=== PATIENT | male | born 1995 | race Two or more races ===

== ENCOUNTER 2017-07-31 20:21 | Emergency (ER) | payer SELFPAY ==
[~2017-07-31] VITALS: Ht 180.3 cm; Wt 120.2 kg
[~2017-07-31 20:21] MED LIST: NKM; NORCO 5-325 TA1 EACH ORAL; ZANTAC150 MG ORAL; ZOFRAN4 MG ORAL
[2017-07-31 20:35] VITALS: BP 157/92
[2017-07-31 21:32] LABS: BASOPHILS % (AUTO) 1.3 % (0.0-2.0); EOSINOPHILS % (AUTO) 1.5 % (0.0-3.0); LYMPHOCYTES % (AUTO) 41.4 % (20.0-45.0); MEAN CORPUSCULAR HEMOGLOBIN 29.9 PG (27.0-31.0); MEAN CORPUSCULAR HGB CONC 32.9 G/DL (32.0-36.0); MEAN CORPUSCULAR VOLUME 91 FL (80-99); MEAN PLATELET VOLUME 6.8 FL (6.5-10.1); MONOCYTES % (AUTO) 6.4 % (1.0-10.0); NEUTROPHILS % (AUTO) 49.5 % (45.0-75.0); PLATELET COUNT 306 K/UL (150-450); RED BLOOD COUNT 5.19 M/UL (4.70-6.10); WHITE BLOOD COUNT 7.9 K/UL (4.8-10.8)
[2017-07-31 21:36] LABS: ANION GAP 12 mmol/L (5-15); CALCIUM 9.6 MG/DL (8.5-10.1); CARBON DIOXIDE 27 MMOL/L (21-32); CHLORIDE 102 MMOL/L (98-107); GLOMERULAR FILTRATION RATE > 60 mL/min (>60); POTASSIUM 3.7 MMOL/L (3.5-5.1); SODIUM 141 MMOL/L (136-145)
[2017-07-31 22:35] VITALS: BP 149/77
[2017-07-31] MEDS ORDERED: NORCO 5-325 TA1 EACH ORAL (22:54)
[2017-07-31] MEDS ORDERED: IBUPROFEN600 MG ORAL (22:54)
[2017-07-31 23:04] VITALS: BP 149/77
--- NOTE | 2017-07-31 23:23 | Emergency Room Report ---
History of Present Illness General Chief Complaint: Back Pain-No Injury Source: Patient Present Illness HPI Patient presents emergency department today complaining of right upper back pain. Patient states that he strained his right upper back while he was out camping. Patient states that he has had pain there ever since it's worse with movement worse with deep inspiration. He denies any cough runny nose sore throat he has some mild chest discomfort. No other complaints are noted. Denies any leg pain leg swelling. No history of DVT or pulmonary embolism.No other modifying factors. No other associated signs and symptoms. No other complaints were noted. Allergies: Coded Allergies: No Known Allergies (Unverified , 04/27/13) Patient History Past Medical History: none Past Surgical History: none Pertinent Family History: none Social History: Denies: smoking, alcohol use, drug use Reviewed Nursing Documentation: PMH: Agreed, PSxH: Agreed Nursing Documentation-PM Past Medical History: No Stated History Hx Gastrointestinal Problems: Yes - gastritis Review of Systems All Other Systems: negative except mentioned in HPI Physical Exam Vital Signs Date Time Temp Pulse Resp B/P (MAP) Pulse Ox O2 Delivery O2 Flow Rate FiO2 07/31/17 20:29 98.2 69 14 157/92 100 Room Air Sp02 EP Interpretation: reviewed, normal General Appearance: normal inspection, well appearing, no apparent distress, alert Head: atraumatic Eyes: bilateral eye normal inspection ENT: normal ENT inspection, hearing grossly normal, normal voice Neck: normal inspection, full range of motion, supple, no bony tend Respiratory: normal inspection, lungs clear, normal breath sounds, no respiratory distress, no retraction, no wheezing Cardiovascular #1: regular rate, rhythm, no edema Gastrointestinal: normal inspection, normal bowel sounds, non tender, soft, no guarding, no hernia Genitourinary: no CVA tenderness Musculoskeletal: normal inspection, back normal, normal range of motion Neurologic: normal inspection, alert, responsive, speech normal Psychiatric: normal inspection, judgement/insight normal, mood/affect normal Skin: normal inspection, normal color, no rash Medical Decision Making Diagnostic Impression: Primary Impression: Back pain ER Course Patient presents emergency department today complaining lower back pain. Differential considerations include back strain, pneumothorax, acute coronary syndrome, pulmonary embolism. Given the severity of the patient's presentation I felt this is a highly complex patient. This patient required extensive workup. Patient's laboratory workup was negative. X-rays negative. EKG was normal. Therefore the patient be discharged home.Patient is advised to follow up with primary doctor in 2-3 days and return the emergency room for any worsening symptoms and as needed. Labs Test 07/31/17 20:58 White Blood Count 7.9 K/UL (4.8-10.8) Red Blood Count 5.19 M/UL (4.70-6.10) Hemoglobin 15.5 G/DL (14.2-18.0) Hematocrit 47.2 % (42.0-52.0) Mean Corpuscular Volume 91 FL (80-99) Mean Corpuscular Hemoglobin 29.9 PG (27.0-31.0) Mean Corpuscular Hemoglobin Concent 32.9 G/DL (32.0-36.0) Red Cell Distribution Width 12.0 % (11.6-14.8) Platelet Count 306 K/UL (150-450) Mean Platelet Volume 6.8 FL (6.5-10.1) Neutrophils (%) (Auto) 49.5 % (45.0-75.0) Lymphocytes (%) (Auto) 41.4 % (20.0-45.0) Monocytes (%) (Auto) 6.4 % (1.0-10.0) Eosinophils (%) (Auto) 1.5 % (0.0-3.0) Basophils (%) (Auto) 1.3 % (0.0-2.0) D-Dimer 0.19 mg/L FEU (0.00-0.49) Sodium Level 141 MMOL/L (136-145) Potassium Level 3.7 MMOL/L (3.5-5.1) Chloride Level 102 MMOL/L (98-107) Carbon Dioxide Level 27 MMOL/L (21-32) Anion Gap 12 mmol/L (5-15) Blood Urea Nitrogen 13 mg/dL (7-18) Creatinine 1.0 MG/DL (0.55-1.30) Estimat Glomerular Filtration Rate > 60 mL/min (>60) Glucose Level 116 MG/DL (74-106) Calcium Level 9.6 MG/DL (8.5-10.1) EKG Diagnostic Results Rate: normal Rhythm: NSR ST Segments: no acute changes Rhythm Strip Diag. Results EP Interpretation: yes Rate: 61 Rhythm: NSR, no PVC's, no ectopy Chest X-Ray Diagnostic Results Chest X-Ray Diagnostic Results : Chest X-Ray Ordered: Yes # of Views/Limited/Complete: 2 View Indication: Shortness of Breath EP Interpretation: Yes Interpretation: no consolidation, no effusion, no pneumothorax, no acute cardiopulmonary disease Impression: No acute disease Electronically Signed by: Electronically signed by Saul Young MD Last Vital Signs Date Time Temp Pulse Resp B/P (MAP) Pulse Ox O2 Delivery O2 Flow Rate FiO2 07/31/17 23:04 98.2 72 14 149/77 100 Room Air Status: improved Disposition: HOME, SELF-CARE Condition: Stable Scripts Ibuprofen* (MOTRIN*) 600 Mg Tablet 600 MG ORAL Q8H Y for For Pain, #20 TAB 0 Refills Prov: SAUL YOUNG M.D. 07/31/17 Hydrocodone Bit/Acetaminophen 5-325* (NORCO 5-325*) 1 Each Tablet 1 TAB ORAL Q6H Y for For Pain, #20 TAB 0 Refills Prov: SAUL YOUNG M.D. 07/31/17 Patient Instructions: Back Pain, Adult SAUL YOUNG M.D. Jul 31, 2017 23:23
--- NOTE | 2017-08-01 10:07 | Diagnostic Imaging Report ---
Indication: PAIN Technique: 2 views of the chest Comparison: none Findings: Lungs and pleural spaces are clear. Heart size is normal. Impression: No acute process This agrees with the preliminary interpretation provided by the emergency room physician
--- NOTE | 2017-08-02 14:46 | Cardiology Report ---
APPROVED REPORT EKG Measurement Heart [id number] Normal sinus rhythm Normal ECG
== END 2017-07-31 23:04 | disposition home or self-care (01) ==
LOC: EMR 22:03
DX: M54.5 Low back pain (principal); R07.89 Other chest pain
CPT/HCPCS: 36415; 71020; 80048; 85025; 85379; 93005; 99284

== ENCOUNTER 2019-06-11 20:10 | Emergency (ER) | payer MEDICAID ==
[~2019-06-11] VITALS: Ht 180.3 cm; Wt 117.9 kg
[~2019-06-11 20:10] MED LIST changes: +BENAZEPRIL HCL20 MG ORAL; +COLACE100 MG ORAL; +IBUPROFEN600 MG ORAL; +MECLIZINE HCL25 MG ORAL; +ONDANSETRON ODT4 MG ORAL; +PRILOSEC10 M1 ORAL; +RANITIDINE HCL150 MG ORAL; +ZOFRAN ODT4 MG ORAL
[2019-06-11 20:30] VITALS: BP 139/95
--- NOTE | 2019-06-11 20:30 | NUR ---
ED Nurse Note: pt walked in c/o abd pain and diarrhea since friday but worsen today, pt reports he ate something but unable to recall, pt vss, ambulate w/ steady gait, resp even and unlabored on RA, no active n/v at this time, will cont monitor.
[2019-06-11] MEDS ORDERED: Mylanta II UD 30ml ORAL ONE (20:45)
[2019-06-11] MEDS ORDERED: Dicyclomine HCl 10mg/5ml oral soln ORAL ONE (20:45)
[2019-06-11] MEDS ORDERED: Lidocaine 2% Visc 15ml soln ORAL ONE (20:45)
[2019-06-11] MEDS ORDERED: ANTI-DIARRHEAL2 MG PO (20:46)
[2019-06-11] MEDS ORDERED: FAMOTIDINE20 MG ORAL (20:46)
[2019-06-11] MEDS ORDERED: ONDANSETRON ODT4 MG BC (20:46)
--- NOTE | 2019-06-11 20:50 | Emergency Room Report ---
History of Present Illness General Chief Complaint: Nausea Source: Patient Present Illness HPI Disclaimer: Please note that this report is being documented using [employer] technology. This can lead to erroneous entry secondary to incorrect interpretation by the dictating instrument. HPI: 24-year-old male with history of ulcer presents for evaluation of diarrhea and nausea. Symptoms have been present for approximately 5 days. He notes persistently loose stools without hematochezia or melena. He notes mild abdominal cramping but not significant. He is able to eat and drink at his baseline. He is complaining of intermittent nausea. Denies fevers, chills, chest pain, shortness of breath, cough or URI symptoms. Denies dysuria or hematuria. He presents to the emergency department today because his symptoms have persisted for greater than 5 days and is constant diarrhea is interfering with his work. He does not have a PMD. Has not taken any medication prior to arrival. Currently, he states his nausea is almost completely resolved and is only complaining of very mild generalized abdominal cramping. States he was treated for a ulcer in the past but this is now resolved and he is no longer taking antacids aside from Mylanta whenever needed PMH: Ulcer PSH: Denies Allergies: Denies Social Hx: CBD, vapes tobacco products Allergies: Coded Allergies: No Known Allergies (Unverified , 04/27/13) Nursing Documentation-PMH Hx Gastrointestinal Problems: Yes - gastritis Review of Systems All Other Systems: negative except mentioned in HPI Physical Exam Vital Signs Date Time Temp Pulse Resp B/P (MAP) Pulse Ox O2 Delivery O2 Flow Rate FiO2 06/11/19 20:20 98.6 77 16 139/95 (110) 98 Room Air General: Awake and alert, no acute distress, well-appearing HEENT: NC/AT. EOMI. moist mucous membranes Neck: Supple, trachea midline Chest Wall: No tenderness, no deformity Cardiovascular: RRR. S1 and S2 normal. No murmur appreciated. Capillary refill less than 2 seconds Resp: Normal work of breathing. No cough, wheezing or crackles appreciated Abdomen: Abdomen is soft, nondistended. Nontender, no masses appreciated. Skin: Intact. No abrasions, laceration or rash over the exposed skin MSK: Normal tone and bulk. Moving all extremities. No obvious deformity. Neuro: Awake and alert. Mentating appropriately. Medical Decision Making Diagnostic Impression: Primary Impression: Diarrhea Additional Impression: Nausea ER Course This 24-year-old male presenting for evaluation of 1 week diarrheal illness with intermittent nausea. Patient appears well-hydrated, no acute distress, abdomen is soft and nontender. He is eating and drinking at his baseline. Overall, he is very well-appearing and nontoxic. Likely, this is a viral syndrome which should resolve in the next week. He will be started on loperamide, daily famotidine and Zofran as needed. I do not believe he requires emergent imaging or lab work at this time. He was also given the list of several clinics in the area for which he can establish himself as a new patient in follow-up within the next week for reevaluation. We did discuss reasons to return to the emergency department. He understands and agrees with the treatment plan was discharged home Last Vital Signs Date Time Temp Pulse Resp B/P (MAP) Pulse Ox O2 Delivery O2 Flow Rate FiO2 06/11/19 20:20 98.6 77 16 139/95 (110) 98 Room Air Disposition: HOME, SELF-CARE Condition: Stable Scripts Ondansetron Odt* (ZOFRAN ODT*) 4 Mg Tab.rapdis 4 MG BC EVERY 6 HOURS PRN for Nausea & Vomiting, #20 TAB 0 Refills Prov: Obed Jonas MD 06/11/19 Famotidine (FAMOTIDINE) 20 Mg Tablet 20 MG ORAL DAILY, #30 TAB 0 Refills Prov: Obed Jonas MD 06/11/19 Loperamide Hcl (ANTI-DIARRHEAL) 2 Mg Capsule 2 MG PO QID PRN for Diarrhea for 10 Days, #30 CAP Prov: Obed Jonas MD 06/11/19 Referrals: [facility] Patient Instructions: Nausea, Adult, Diarrhea, Adult Additional Instructions: Your evaluated for diarrhea and nausea in the emergency department today. Likely, this is a viral syndrome that should resolve in the next week. We will start you on Imodium to treat your diarrhea, Pepcid daily for heartburn and nausea medication to use as needed. He will also be referred to several clinics in the area to establish herself as a new patient. Please follow-up with them within the next week and return to the emergency department any new or worsening symptoms. Obed Jonas MD Jun 11, 2019 20:50
--- NOTE | 2019-06-11 20:55 | NUR ---
ED Nurse Note: pt cleared to be d/c per ERMD, pt discharge and aftercare instruction provided w/ prescription, pt education done via discussion and handout, pt advised to follow up with pcp or return to ed if changes in condition, vss, ambulatory w/ steady gait, left w/ all belongings.
[2019-06-11 20:56] VITALS: BP 121/86
== END 2019-06-11 20:56 | disposition home or self-care (01) ==
LOC: EMR 20:35
DX: R19.7 Diarrhea, unspecified (principal); R11.0 Nausea; Z87.11 Personal history of peptic ulcer disease; Z72.0 Tobacco use
CPT/HCPCS: 96374; 96375; Z7502; 99284; J2405

== ENCOUNTER 2019-06-13 18:30 | Emergency (ER) | payer MEDICAID ==
[~2019-06-13] VITALS: Ht 180.3 cm; Wt 117.9 kg
[~2019-06-13 18:30] MED LIST changes: +ANTI-DIARRHEAL2 MG PO; +FAMOTIDINE20 MG ORAL; +ONDANSETRON ODT4 MG BC
--- NOTE | 2019-06-13 18:40 | NUR ---
ED Nurse Note: PT WALKED IN TO ER TODAY FROM HOME. AOX4. PT C/O NONRADIATING, STERNAL CHEST PAIN, 7/10 X LAST NIGHT AROUND 2300. PT ALSO C/O ANTERIOR HEADACHE AND DIZZINESS X LAST NIGHT AT THE SAME TIME. PT DENIES NAUSEA OR VOMITING. GAIT STEADY IN ER. AT BEDSIDE, EKG IS NORMAL SINUS RHYTHM WITH HR 83.
[2019-06-13 18:43] VITALS: BP 142/88
[2019-06-13 19:05] VITALS: BP 122/82
--- NOTE | 2019-06-13 19:05 | NUR ---
HAND-OFF: REPORT GIVEN TO CLINTON GONZÁLES.
[2019-06-13 19:11] LABS: BASOPHILS % (AUTO) 0.4 % (0.0-2.0); EOSINOPHILS % (AUTO) 0.1 % (0.0-3.0); HEMATOCRIT 47.1 % (42.0-52.0); HEMOGLOBIN 16.1 G/DL (14.2-18.0); LYMPHOCYTES % (AUTO) 24.6 % (20.0-45.0); MEAN CORPUSCULAR VOLUME 88 FL (80-99); MONOCYTES % (AUTO) 6.2 % (1.0-10.0); NEUTROPHILS % (AUTO) 68.7 % (45.0-75.0); PLATELET COUNT 266 K/UL (150-450); RED BLOOD COUNT 5.35 M/UL (4.70-6.10); RED CELL DISTRIBUTION WIDTH 10.8 % (11.6-14.8); WHITE BLOOD COUNT 7.5 K/UL (4.8-10.8)
[2019-06-13 19:19] LABS: ANION GAP 10 mmol/L (5-15); BLOOD UREA NITROGEN 8 mg/dL (7-18); CALCIUM 9.5 MG/DL (8.5-10.1); CARBON DIOXIDE 26 MMOL/L (21-32); CHLORIDE 104 MMOL/L (98-107); CREATININE 0.9 MG/DL (0.55-1.30); POTASSIUM 3.9 MMOL/L (3.5-5.1); SODIUM 140 MMOL/L (136-145)
--- NOTE | 2019-06-13 19:20 | NUR ---
ED Nurse Note: urine sent to lab
[2019-06-13 19:23] LABS: ALANINE AMINOTRANSFERASE 36 U/L (12-78); ALBUMIN 4.6 G/DL (3.4-5.0); ALBUMIN/GLOBULIN RATIO 1.1 (1.0-2.7); ALKALINE PHOSPHATASE 76 U/L (46-116); ASPARTATE AMINO TRANSFERASE 19 U/L (15-37); BILIRUBIN,TOTAL 0.7 MG/DL (0.2-1.0); CREATINE KINASE 241 U/L (26-308)
[2019-06-13 19:34] LABS: APPEARANCE,URINE CLEAR; BILIRUBIN, URINE NEGATIVE (NEGATIVE); GLUCOSE, URINE (UA) NEGATIVE (NEGATIVE); KETONES,URINE NEGATIVE (NEGATIVE); LEUKOCYTE ESTERASE ,URINE NEGATIVE (NEGATIVE); NITRITE,URINE NEGATIVE (NEGATIVE); PH,URINE 6 (4.5-8.0); PROTEIN,URINE 1+ (NEGATIVE); UROBILINOGEN,URINE NORMAL MG/DL (0.0-1.0)
[2019-06-13 19:36] LABS: COLOR,URINE YELLOW
[2019-06-13] MEDS ORDERED: Ketorolac 30mg Inj IV ONE (19:45)
--- NOTE | 2019-06-13 19:58 | Emergency Room Report ---
History of Present Illness General Chief Complaint: Chest Pain Source: Patient Present Illness HPI 24-year-old male with history of benign positional vertigo currently taking meclizine here complaining of 1 day of chest pain. Patient reports that he was here this past Friday and was diagnosed with stomach flu due to abdominal pain nausea vomiting. However there are no notes of his visit here. Patient reports that he has been having multiple bouts of vomiting which has been resolving today and one bout of nonbloody diarrhea. Denies fever and chills. Reports that he started feeling chest pain with radiation or shortness of breath today and is scared to go to sleep as he is afraid of flying. Patient reports that he uses CBD oil for anxiety. Reports that he has been very anxious lately however denies any suicidal homicidal ideation. Denies illicit drug use or tobacco smoke. Denies ingestion of alcohol recently. Denies recent travel. Reports that he has not yet picked up his prescription for Pepcid. Reports that meclizine helps him with nausea. Has been able to intake oral hydration. Denies urinary symptoms. Denies any recent vertigo. Denies history of cardiac disease. Reports that his chest pain gets better when he leans forward and is worse when laying down. Reports that he usually consumes a lot of acidic and spicy food however has stopped taking them in the past few days. He mentions that he has been doing cramping in the legs as well as arms however denies today. No calf tenderness noted. Patient reports that he is very active and usually hydrates Allergies: Coded Allergies: No Known Allergies (Unverified , 02/17/17) Patient History Past Medical History: see triage record Past Surgical History: unable to obtain Pertinent Family History: none Immunizations: UTD Reviewed Nursing Documentation: PMH: Agreed; PSxH: Agreed Nursing Documentation-PMH Past Medical History: No History, Except For Hx Hypertension: Yes Hx Gastrointestinal Problems: Yes - stomach ULCER Review of Systems All Other Systems: negative except mentioned in HPI Physical Exam Vital Signs Date Time Temp Pulse Resp B/P (MAP) Pulse Ox O2 Delivery O2 Flow Rate FiO2 06/13/19 18:32 99.0 93 20 149/95 (113) 98 Room Air Sp02 EP Interpretation: reviewed, normal General Appearance: no apparent distress, alert, GCS 15, non-toxic Head: normocephalic, atraumatic Eyes: bilateral eye normal inspection, bilateral eye PERRL ENT: hearing grossly normal, normal pharynx, no angioedema, normal voice Neck: full range of motion, supple/symm/no masses Respiratory: chest non-tender, lungs clear, normal breath sounds, no rhonchi, no respiratory distress, no wheezing, speaking full sentences Cardiovascular #1: regular rate, rhythm, no edema, no gallop, no murmur Cardiovascular #2: 2+ dorsalis pedis (R), 2+ dorsalis pedis (L) Gastrointestinal: non tender, soft, no mass, no organomegaly, no peritonitis, no bruit, non-distended, no guarding, no hernia, no pulsatile mass, no rebound Rectal: deferred Genitourinary: normal inspection, no CVA tenderness Musculoskeletal: back normal, gait/station normal, normal range of motion, non- tender, no calf tenderness Neurologic: alert, oriented x3, responsive, motor strength/tone normal, sensory intact, speech normal Psychiatric: judgement/insight normal, memory normal, mood/affect normal, no suicidal/homicidal ideation Skin: no rash Lymphatic: no adenopathy Medical Decision Making PA Attestation Diagnosis and treatment plans were reviewed and discussed with my supervising physician Dr. Jimenez Diagnostic Impression: Primary Impression: Anxiety Additional Impression: GERD (gastroesophageal reflux disease) ER Course 24-year-old male with history of benign positional vertigo currently taking meclizine here complaining of 1 day of chest pain. Patient reports that he was here this past Friday and was diagnosed with stomach flu due to abdominal pain nausea vomiting. However there are no notes of his visit here. Patient reports that he has been having multiple bouts of vomiting which has been resolving today and one bout of nonbloody diarrhea. Denies fever and chills. Reports that he started feeling chest pain with radiation or shortness of breath today and is scared to go to sleep as he is afraid of flying. Patient reports that he uses CBD oil for anxiety. Reports that he has been very anxious lately however denies any suicidal homicidal ideation. Denies illicit drug use or tobacco smoke. Denies ingestion of alcohol recently. Denies recent travel. Reports that he has not yet picked up his prescription for Pepcid. Reports that meclizine helps him with nausea. Has been able to intake oral hydration. Denies urinary symptoms. Denies any recent vertigo. Denies history of cardiac disease. Reports that his chest pain gets better when he leans forward and is worse when laying down. Reports that he usually consumes a lot of acidic and spicy food however has stopped taking them in the past few days. He mentions that he has been doing cramping in the legs as well as arms however denies today. No calf tenderness noted. Patient reports that he is very active and usually hydrates Ddx considered but are not limited to: PR, Angina, COPD, GERD, anxiety Vital signs: are WNL, pt. is afebrile H&PE are most consistent with: anxiety, GERD ORDERS: CBC, CMP, CK, UA, troponin, tox screen, EKG ED INTERVENTIONS: NS bolus, Pepcid, Toradol, Zofran DISCHARGE: At this time pt. is stable for d/c to home. Will provide printed patient care instructions, and any necessary prescriptions. Care plan and follow up instructions have been discussed with the patient prior to discharge. Patient agrees to continue taking meclizine as needed for vertigo and also nausea patient will clam picker the prescription for Pepcid. Advised him to take Tylenol for pain instead of ibuprofen. Patient to follow-up with a psychiatrist. Reduce CBD oil use as it may be the cause of his anxiety as well as excess nausea vomiting. Return to the emergency room with worsening symptoms. Patient is stable to be discharged EKG Diagnostic Results Rate: normal Rhythm: NSR ST Segments: no acute changes Chest X-Ray Diagnostic Results Chest X-Ray Diagnostic Results : Chest X-Ray Ordered: Yes # of Views/Limited/Complete: 1 View Indication: Chest Pain EP Interpretation: Yes TESFAYE Xray: Interpretation reviewed, by supervising MD, and agrees with findings. Interpretation: no consolidation, no effusion, no pneumothorax Impression: No acute disease Electronically Signed by: Coby Echavarria PA-C Last Vital Signs Date Time Temp Pulse Resp B/P (MAP) Pulse Ox O2 Delivery O2 Flow Rate FiO2 06/13/19 19:05 98.8 70 12 122/82 94 Room Air Disposition: HOME, SELF-CARE Condition: Stable Patient Instructions: Generalized Anxiety Disorder, Nonspecific Chest Pain, Heartburn Additional Instructions: Follow-up with your primary care provider worsening symptoms return to the emergency room Coby Sosa Jun 13, 2019 19:58
[2019-06-13 20:08] VITALS: BP 127/82
--- NOTE | 2019-06-13 20:08 | NUR ---
ER DISCHARGE NOTE: Patient is cleared to be discharged per ERMD, pt is aox4, on room air, with stable vital signs. pt was given dc and prescription instructions, pt was able to verbalize understanding, pt id band and iv site removed without complications. pt is able to ambulate with steady gait. pt took all belongings.
--- NOTE | 2019-06-14 10:58 | Diagnostic Imaging Report ---
Indication: Dyspnea Comparison: 11/13/2016 A single view chest radiograph was obtained. Findings: Cardiomediastinal appearance is within normal limits for age. The lungs are clear. Pulmonary vascularity is appropriate. The diaphragmatic contour is smooth and costophrenic angles are sharp. No pleural effusions are identified. The bones are unremarkable. Impression: No acute findings
--- NOTE | 2019-06-14 18:35 | Cardiology Report ---
APPROVED REPORT EKG Measurement Heart [id number] NM [id number] Normal sinus rhythm Normal ECG
== END 2019-06-13 20:08 | disposition home or self-care (01) ==
LOC: MERGE 18:53 → EMR 18:53
DX: F41.9 Anxiety disorder, unspecified (principal); K21.9 Gastro-esophageal reflux disease without esophagitis; I10 Essential (primary) hypertension
CPT/HCPCS: 36415; 71045; 80053; 80307; 80329; 81001; 82550; 84484; 85025; 93005; 96361; 96374; 96375; J1885; J2405; S0028; Z7502; 99284

== ENCOUNTER 2020-08-17 09:06 | Emergency (ER) | payer MEDICAID ==
[~2020-08-17] VITALS: Ht 180.3 cm; Wt 113.4 kg
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
[2020-08-17 09:28] VITALS: BP 133/87
[2020-08-17] MEDS ORDERED: ROBAXIN-750750 MG PO (09:29)
[2020-08-17] MEDS ORDERED: IBUPROFEN600 M1 ORAL (09:29)
[2020-08-17] MEDS ORDERED: LIDODERM700 M1 TOPIC (09:29)
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
--- NOTE | 2020-08-17 09:35 | NUR ---
ED Nurse Note: Pt cleared by health care Provider for discharge. DC instructions/prescription was given and explained to pt and verbalized understanding of teachings. All medical deviecs such as ID band removed. Pt is AAO x4, ambulatory and left with all personal belongings.
[2020-08-17 09:37] VITALS: BP 127/85
== END 2020-08-17 09:56 | disposition home or self-care (01) ==
LOC: EMR 09:25
DX: S39.012A Strain of muscle, fascia and tendon of lower back, initial encounter (principal); V43.52XA Car driver injured in collision with other type car in traffic accident, initial encounter; Y92.411 Interstate highway as the place of occurrence of the external cause
CPT/HCPCS: 99282

== ENCOUNTER 2020-09-18 10:03 | Emergency (ER) | payer MEDICAID ==
[~2020-09-18] VITALS: Ht 180.3 cm; Wt 108.9 kg
[~2020-09-18 10:03] MED LIST changes: +AUGMENTIN 875-1 EAC1 ORAL; +BACITRACIN15 GM TOPIC; +IBUPROFEN600 M1 ORAL; +LIDOCAINE700 M1 TP; +LIDODERM700 M1 TOPIC; +ROBAXIN-750750 MG PO; +ROBAXIN500 MG PO; +TYLENOL EXTRA500 MG ORAL
[2020-09-18 10:18] VITALS: BP 132/92
--- NOTE | 2020-09-18 10:18 | NUR ---
ED Nurse Note: Pt walked in to ED from home c/o productive cough and itchy throat x1 week. Denies CP, SOB. Pt was tested negative for covid a week ago. AAOx4, on room air. Afebrile.
--- NOTE | 2020-09-18 10:19 | Emergency Room Report ---
History of Present Illness General Chief Complaint: Upper Respiratory Illness Source: Patient Present Illness HPI 25-year-old male here with cough X 8 days. Patient states that his sister and little brother are sick at home with similar symptoms. Cough is productive with yellow phlegm. Also endorses sore throat and fatigue but denies chest pain, shortness of breath, nausea, vomiting, diarrhea, rash, headache, photophobia, or other symptoms. Denies recent travel or antibiotic use. Is unsure if Covid contacts The patient's symptoms were gradual onset, severity was moderate, duration since 8 days. Quality: Productive Past medical history: Pneumonia, possible asthma Past surgical history: Denies Smoking: Vapes Alcohol use: Denies Drug use: Denies Review of systems: CONST: No fevers or chills, No night sweats PULMONARY: Positive productive cough, No shortness of breath CARDIAC: No chest pain, No palpitations GI: No vomiting, No diarrhea , No melena_or_BRBPR : No dysuria, No hematuria, No discharge NEURO: No new_focal_weakness_or_numbness, No confusion, No vision changes 14 point Review of Systems is otherwise negative except per HPI Physical Exam: GENERAL: Awake_alert_ nontoxic, no acute distress Spo2 95% on RA -normal EYES: Extraocular muscles are intact. Conjunctivae clear. Lids without swelling ENT: External nose and ear normal_in_appearance. Oropharynx clear. Head_atraumatic, Moist_oral_mucosa NECK: No JVD. No meningismus. No thyromegaly. Supple. Trachea midline RESP: Normal respiratory effort. Symmetric rise. No stridor. Left lower lobe crackles. Speaks in full sentences. No subcostal retractions CARDIAC: Regular rate and regular rhytm. No_significant pedal edema. ABDOMEN: Soft. Nondistended. Nontender_No_rebound_or_guarding. MSK: Normal muscle tone, without rigidity. Extremities without asymmetric deformity or swelling. SKIN: Warm and dry. No visible cyanosis or pallor NEUROLOGIC: Alert, oriented x3. Motor_and_sensation_grossly_intact. No truncal ataxia. Gait_normal Psych: Normal mood and affect, normal judgment and insight - COORDINATION OF CARE Case was discussed with: Patient Any imaging that were ordered were interpreted as part of the medical decision making: Medical Decision Making/Plan: DDx: includes COVID-19 / coronavirus infection, URI, bronchitis, viral syndrome, postnasal drip, versus less likely pneumonia, among others. The patient is nontoxic and well-appearing and has no significant shortness of breath or fever . The patient exhibits no evidence of respiratory distress. Chest x-ray revealed left lower lobe infiltrate, likely community-acquired pneumonia versus COVID-19. No evidence of ENT emergency, airway patent, tolerating oral liquids and solids. No stridor or difficulty breathing. Tonsils within normal limits, no evidence of swelling, exudate or strep pharyngitis. No indication for empiric antibiotic treatment. Sublingual space soft. Will treat with antibiotic. The patient was instructed to follow up with their physician and instructed to return if worsens, progressively worsening shortness of breath or difficulty breathing, persistent fever, chest pains or discomfort, inability to keep medication or fluids down with or without vomiting, or any other new, worsening or concerning symptoms Based on the patients presenting signs, symptoms, exam, and risk factors (living in an area endemic for a coronavirus outbreak = [place]), the patient has been screened for coronavirus infection and is suspected of having COVID 19. Due to global pandemic and nationwide shortage of PCR testing, unable to offer Covid test at this time, however gave patient resources to get tested from the [facility]. Patient was nontoxic with benign vital signs. Patient did not meet admission criteria and was stable for outpatient therapy. Patient was instructed to home quarantine for 14 days or until 3 days after their last fever, whichever is longer. Appropriate precautions were given. Strict return precautions given, including but limited to: Patient educated to notify a healthcare professional if they develop further symptoms that include chest pain, palpitations, significant SOB, fever, or other concerning symptoms. Discussed supportive care with rest, hydration, frequent handwashing and Tylenol and Motrin [id number] as needed for pain or fevers. Discussed strict return precautions. Verbal discharge with written instructions were given for COVID- 19. Patient is instructed to follow up with their primary care provider in 1-2 days, or return to the ED for worsening symptoms. Return to ED precautions were given. Allergies: Coded Allergies: No Known Allergies (Unverified , 04/27/13) COVID-19 Screening Contact w/high risk pt: No Experienced COVID-19 symptoms?: No COVID-19 Testing performed DIRECTOR OF RADIO SERVICES: Yes COVID-19 Screening: Negative COVID-19 COVID-19 Testing Source: 09/10 FASHION SHOW DIRECTOR Nursing Documentation-PMH Past Medical History: No History, Except For Hx Gastrointestinal Problems: Yes - gastritis Physical Exam Vital Signs Date Time Temp Pulse Resp B/P (MAP) Pulse Ox O2 Delivery O2 Flow Rate FiO2 09/18/20 10:12 98.4 92 17 132/92 (105) 95 Room Air Sp02 EP Interpretation: reviewed, normal Medical Decision Making Diagnostic Impression: Primary Impression: Cough Additional Impression: Suspected 2019-nCoV infection Last Vital Signs Date Time Temp Pulse Resp B/P (MAP) Pulse Ox O2 Delivery O2 Flow Rate FiO2 09/18/20 10:12 98.4 92 17 132/92 (105) 95 Room Air Disposition: HOME, SELF-CARE Admit Decision Time: 11:30 Condition: Stable Scripts Albuterol Sulfate* (PROAIR HFA*) 8.5 Gm Hfa.aer.ad 2 PUFFS INH Q6H for bronchospasm for 7 Days, #8.5 GM 0 Refills Prov: Keiry Barger D.O. 09/18/20 Albuterol Sulfate (PROVENTIL HFA) 6.7 Gm Hfa.aer.ad 6.7 GM IH QID for bronchospasm for 7 Days, #2 INH Prov: Keiry Barger D.O. 09/18/20 Guaifenesin/D-Methorphan Hb/Pe (ROBITUSSIN COUGH-COLD CF LIQ*) 118 Ml Liquid 5 ML ORAL Q6H PRN for FOR COUGH, #118 ML Prov: Keiry Barger D.O. 09/18/20 Albuterol Sulfate* (ALBUTEROL SULFATE HHN*) 2.5 Mg/3 Ml Vial.neb 2.5 MG HHN Q4H PRN for Shortness of Breath, #25 VIAL Prov: Keiry Barger D.O. 09/18/20 Azithromycin* (ZITHROMAX*) 250 Mg Tablet 250 MG ORAL DAILY, #6 TAB 0 Refills Take two tables once daily for 1 day, then one tablet once daily for 4 days. Prov: Keiry Barger D.O. 09/18/20 Patient Instructions: Cough, Adult, Ohyx-br-[id number] Additional Instructions: Instructions for patient/miller helper distillery: Follow up with your physician in 1-2 days. Follow-up with your doctor sooner if your condition requires a more timely clinical reevaluation. Return to the emergency department immediately if you feel that your condition is worsening or if you have any new or concerning symptoms. Review your discharge instructions and take any prescriptions given as instructed. [facility] PROVIDES FREE OR LOW-COST HEALTH SERVICES TO PEOPLE WHO CAN SHOW PROOF THAT THEY LIVE IN [place]. TO FIND MORE CLINICS PARTNERED WITH [facility] TO PROVIDE SERVICE, PLEASE CALL . Your evaluation suggests that you are suffering from a viral infection producing a viral syndrome. You can sign up for testing with [facility] at the following website as discussed [email or web address] Symptoms of a viral syndrome may include fever, sore throat, headache, body aches and pains, generalized weakness and fatigue, and runny nose. You do not show signs or symptoms suggestive of a serious or life threatening illness. This illness may be caused by a number of different viruses, including Influenza A or B or COVID-19. These viruses are highly contagious and spread rapidly from person to person via coughing and sneezing of the virus or by contaminated surface contact with nasal or other respiratory secretions. These viruses cause a similar combination of signs and symptoms which are typically much more severe than the common cold. Typically they begin with the rapid onset of fever, often high (over 102), body aches, fatigue, headache, and usually upper respiratory tract infections symptoms such as cough, runny nose, and sore throat. The illness typically lasts 7-10 days, with the fever and feelings of weakness and body aches usually lasting 3-5 days. Your own immune system fights off these infections. Only rarely do secondary bacterial infections occur (such as bacterial pneumonia) and can be serious. At this time your symptoms do not appear serious, however, there are limitations to online visits and if you are not improving you may need to be evaluated by a doctor in person and that doctor may need to do additional tests. INSTRUCTIONS: Illnesses such as yours typically resolve on their own with time however you must remember to stay hydrated and drink 2-3 times your normal fluid intake, as fever and your increased metabolism in fighting the infection uses more water. Fever control is important to help you feel better and to help prevent dehydration. Acetaminophen is an excellent choice for fever control and other symptoms (as long as you are not allergic to the medication). Rest is also important in helping your body fight this infection. Over the counter cough and decongestant medications are safe (as long as you dont have uncontrolled high blood pressure) and may help the cough and congestion slightly. As these viruses are highly contagious, good hand washing habits, and covering your cough and sneeze help prevent spread. Fever can be a sign of a serious infection and it is imperative that you go directly to an Emergency Department for serious symptoms such as weakness, confusion, significant shortness of breath, abdominal pain, or severe headache. Close follow up with a physician is important if you are not improving over the next few days or you experience worsening of your symptoms. Although it is impossible to know at this point if you have COVID-19 (the [place] virus), please quarantine yourself and anyone else that is residing with you for the longer of the following time periods: 14 days OR 3 days after the last of your symptoms has resolved CONTACT THE DOCTOR RIGHT AWAY if you develop worsening symptoms such as shortness of breath, chest pain, neck stiffness, confusion or any other new, worsening, or concerning symptoms. For emergencies contact 911 immediately. Keiry Barger D.O. Sep 18, 2020 10:19
[2020-09-18] MEDS ORDERED: ZITHROMAX250 MG ORAL (10:26)
[2020-09-18] MEDS ORDERED: ROBITUSSIN COU118 M1 ORAL (10:43)
[2020-09-18] MEDS ORDERED: ALBUTEROL2.5 MG/3 M HHN (10:43)
[2020-09-18] MEDS ORDERED: PROVENTIL HFA6.7 G1 IH (10:49)
[2020-09-18 11:02] VITALS: BP 132/92
--- NOTE | 2020-09-18 11:02 | NUR ---
ED Nurse Note: Pt cleared by ERMD for discharge. DC instructions/prescription was given and explained to pt and verbalized understanding of teachings. All medical deviecs such as ID band removed. Pt is AAO x4, ambulatory and left with all personal belongings.
[2020-09-18] MEDS ORDERED: PROAIR HFA8.5 GM INH (14:15)
--- NOTE | 2020-09-18 15:57 | Diagnostic Imaging Report ---
Indication: Cough Technique: One view of the chest Comparison: 07/31/2017 Findings: There is questionably a patchy infiltrate at the left lateral lung base. There is very slight blunting of left costophrenic sulcus. The right pleural space and remainder of the lungs are clear. The heart size is normal. Impression: Possible left basilar patchy infiltrate, could indicate pneumonia if real. Possible small left pleural effusion
== END 2020-09-18 11:02 | disposition home or self-care (01) ==
LOC: EMR 10:22
DX: R05 Cough (principal); Z20.828 Contact with and (suspected) exposure to other viral communicable diseases; R53.83 Other fatigue; J02.9 Acute pharyngitis, unspecified
CPT/HCPCS: 71045; Z7502; 99283

== ENCOUNTER 2020-10-10 21:50 | Emergency (ER) | payer MEDICAID ==
[~2020-10-10] VITALS: Ht 180.3 cm; Wt 108.9 kg
[~2020-10-10 21:50] MED LIST changes: +ALBUTEROL2.5 MG/3 M HHN; +PROAIR HFA8.5 GM INH; +PROVENTIL HFA6.7 G1 IH; +ROBITUSSIN COU118 M1 ORAL; +ZITHROMAX250 MG ORAL
[2020-10-10 22:00] VITALS: BP 141/84
--- NOTE | 2020-10-10 22:00 | NUR ---
ED Nurse Note: Pt walked in frmo home c/o pain with inhalation. Pt reports cough x 1 month and diagnosis of pneumonia last month. Pt negative for COVID last month. Respirations even and unlabored on room air. vitals stable as documented. A+Ox4, speaking in complete sentences.
[2020-10-10] MEDS ORDERED: Ketorolac 30mg Inj IM ONE (22:30)
[2020-10-10] MEDS ORDERED: Acetaminophen 500mg (ES) tab ORAL ONE (22:30)
--- NOTE | 2020-10-10 22:30 | Emergency Room Report ---
History of Present Illness General Chief Complaint: Upper Respiratory Illness Source: Patient Present Illness HPI The patient presents with 2 days of left-sided chest pain. He also has wheezing and a productive cough with some green phlegm. He denies any fevers or chills. He has been using an albuterol inhaler which is helped him. He has some mild dyspnea on exertion which is helped with albuterol. He rates the pain 6-7/10, pleuritic and when he coughs on the left-hand side. He doesn't feel when pain when he exerts himself. He denies any history of asthma. (However he has had albuterol prescribed twice in the past.) The patient was treated September 18 here for pneumonia with azithromycin. He is tested negative for Covid. The last test was September 26. He had one checkup after finishing the azithromycin. At that time there was a questionable infiltrate on the left-hand side and possibly a pleural effusion on x-ray. Patient has slight nausea with the cough. No fevers, chills, sore throat, palpitations, vomiting, diarrhea, dysuria, abd ominal pain, joint pain, rashes, depression, anxiety, visual changes, dizziness, headache. 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 Reviewed Nursing Documentation: PMH: Agreed; PSxH: Agreed Nursing Documentation-PMH Past Medical History: No History, Except For Hx Gastrointestinal Problems: Yes - gastritis Review of Systems All Other Systems: negative except mentioned in HPI Physical Exam Vital Signs Date Time Temp Pulse Resp B/P (MAP) Pulse Ox O2 Delivery O2 Flow Rate FiO2 10/10/20 21:57 98.2 78 20 148/92 (110) 95 Room Air Sp02 EP Interpretation: reviewed, normal General Appearance: well appearing, no apparent distress, GCS 15, non-toxic Head: normocephalic Eyes: bilateral eye normal inspection, bilateral eye PERRL, bilateral eye EOMI ENT: other - Wearing a mask Neck: supple Respiratory: no rhonchi, no respiratory distress, no retraction, no accessory muscle use, wheezing - Minimal left expiratory Cardiovascular #1: regular rate, rhythm Cardiovascular #2: 2+ radial (R) Gastrointestinal: normal inspection Musculoskeletal: back normal, normal range of motion, gait/station normal Neurologic: alert, oriented x3, grossly normal Psychiatric: mood/affect normal Skin: other - Fully dressed Medical Decision Making Diagnostic Impression: Primary Impression: Pleurisy Additional Impressions: H/O: pneumonia COVID-19 ruled out by laboratory testing Bronchospasm ER Course Patient presents with left-sided pleuritic chest pain with history of pneumonia and some bronchospasm. He is status post treatment with a azithromycin on September 18. Differential includes bronchitis, asthma, pneumonia, pneumothorax, Covid amongst others. Patient evaluated with Covid test, chest x-ray. In addition exertional pulse oximetry will be performed. Patient treated with a shot of Toradol and Tylenol. O2 saturation stays at 99 to 100% with exertion. Chest x-ray resolution of any findings in the left lower lobe and no evidence of pleural effusion. Covid test negative. Patient improved with treatment. Discussed treatment plan with patient and gave instructions using albuterol inhaler. No medical emergency at this time. Patient stable for outpatient observation and treatment. Microbiology Date/Time Source Procedure Growth Status 10/10/20 22:20 Nasopharynx SARS-CoV-2 RdRp Gene Assay - Final Complete Chest X-Ray Diagnostic Results Chest X-Ray Diagnostic Results : Chest X-Ray Ordered: Yes # of Views/Limited/Complete: 1 View Indication: Chest Pain EP Interpretation: Yes Interpretation: no consolidation, no effusion, no pneumothorax, other - resolution of infiltrate and effusion Impression: Other Electronically Signed by: Electronically signed by Guzman Ba MD Last Vital Signs Date Time Temp Pulse Resp B/P (MAP) Pulse Ox O2 Delivery O2 Flow Rate FiO2 10/10/20 23:25 97.8 74 20 137/78 98 Room Air Status: improved Disposition: HOME, SELF-CARE Condition: Improved Scripts Acetaminophen (Tylenol) 325 Mg Tablet 650 MG ORAL Q6H PRN for Prn Pain/Headache/Temp > 101, #20 TAB 0 Refills Prov: Guzman Ba MD 10/10/20 Albuterol Sulfate* (Albuterol Sulfate Hfa*) 8.5 Gm Hfa.aer.ad 2 PUFF INH Q6H, #1 INH 1 Refill Prov: Guzman Ba MD 10/10/20 Guaifenesin/Codeine Phos* (ROBITUSSIN AC*) 118 Ml Liquid 1 TSP ORAL Q6H PRN for For Cough, #90 ML 0 Refills Prov: Guzman Ba MD 10/10/20 Prednisone* (PREDNISONE*) 20 Mg Tablet 40 MG ORAL DAILY, #10 TAB Prov: Guzman Ba MD 10/10/20 Guzman Ba MD Oct 10, 2020 22:30
[2020-10-10] MEDS ORDERED: GUAIFENESIN-CO118 M1 ORAL (23:16)
[2020-10-10] MEDS ORDERED: PREDNISONE20 MG ORAL (23:16)
[2020-10-10] MEDS ORDERED: TYLENOL325 MG ORAL (23:16)
[2020-10-10] MEDS ORDERED: ALBUTEROL SULF8.5 G1 INH (23:16)
[2020-10-10 23:25] VITALS: BP 137/78
--- NOTE | 2020-10-10 23:25 | NUR ---
ED Nurse Note: Pt cleared by health care Provider for discharge. DC instructions/prescription were given and explained to pt and verbalized understanding of teachings. All medical devices such as ID band removed. Pt is AAO x4, ambulatory and left with all personal belongings.
--- NOTE | 2020-10-11 13:05 | Diagnostic Imaging Report ---
Indication: Chest pain Technique: XRAY Chest 1v Comparison: 09/18/2020 Findings: Heart size and mediastinal contours are within normal limits for AP technique. There is no focal airspace consolidation, pneumothorax or pleural effusion. Osseous structures demonstrate no acute abnormality. Impression: No radiographic evidence of acute cardiopulmonary disease.
== END 2020-10-10 23:25 | disposition home or self-care (01) ==
LOC: EMR 22:26
DX: R09.1 Pleurisy (principal); J98.01 Acute bronchospasm; Z87.01 Personal history of pneumonia (recurrent); Z83.3 Family history of diabetes mellitus; Z82.5 Family history of asthma and other chronic lower respiratory diseases
CPT/HCPCS: 71045; 96372; J1885; J7512; U0002; Z7502; 99283

== ENCOUNTER 2020-10-28 19:54 | Emergency (ER) | payer MEDICAID ==
[~2020-10-28] VITALS: Ht 180.3 cm; Wt 108.9 kg
[~2020-10-28 19:54] MED LIST changes: +ALBUTEROL SULF8.5 G1 INH; +GUAIFENESIN-CO118 M1 ORAL; +PREDNISONE20 MG ORAL; +TYLENOL325 MG ORAL
--- NOTE | 2020-10-28 20:15 | NUR ---
ED Nurse Note: Patient came to ED complaining of right rib pain radiating to right flank for two weeks, denies any trauma. Afebrile, no problems with urination.
[2020-10-28 20:54] LABS: APPEARANCE,URINE CLEAR; BILIRUBIN, URINE NEGATIVE (NEGATIVE); COLOR,URINE PALE YELLOW; GLUCOSE, URINE (UA) NEGATIVE (NEGATIVE); KETONES,URINE NEGATIVE (NEGATIVE); LEUKOCYTE ESTERASE ,URINE NEGATIVE (NEGATIVE); NITRITE,URINE NEGATIVE (NEGATIVE); PH,URINE 7 (4.5-8.0); PROTEIN,URINE NEGATIVE (NEGATIVE); UROBILINOGEN,URINE NORMAL MG/DL (0.0-1.0)
[2020-10-28 21:02] LABS: BASOPHILS % (AUTO) 0.9 % (0.0-2.0); HEMATOCRIT 46.4 % (42.0-52.0); HEMOGLOBIN 15.6 G/DL (14.2-18.0); LYMPHOCYTES % (AUTO) 42.2 % (20.0-45.0); MEAN CORPUSCULAR VOLUME 89 FL (80-99); MONOCYTES % (AUTO) 7.1 % (1.0-10.0); NEUTROPHILS % (AUTO) 48.9 % (45.0-75.0); PLATELET COUNT 251 K/UL (150-450); RED BLOOD COUNT 5.22 M/UL (4.70-6.10); RED CELL DISTRIBUTION WIDTH 12.4 % (11.6-14.8)
[2020-10-28 21:03] LABS: ANION GAP 5 mmol/L (5-15); BLOOD UREA NITROGEN 15 mg/dL (7-18); CALCIUM 9.2 MG/DL (8.5-10.1); CARBON DIOXIDE 30 MMOL/L (21-32); CHLORIDE 103 MMOL/L (98-107); CREATININE 0.9 MG/DL (0.55-1.30); POTASSIUM 3.4 MMOL/L (3.5-5.1); SODIUM 138 MMOL/L (136-145)
[2020-10-28 21:08] LABS: ALANINE AMINOTRANSFERASE 29 U/L (12-78); ALBUMIN 4.1 G/DL (3.4-5.0); ALBUMIN/GLOBULIN RATIO 1.1 (1.0-2.7); ALKALINE PHOSPHATASE 81 U/L (46-116); ASPARTATE AMINO TRANSFERASE 20 U/L (15-37); BILIRUBIN,TOTAL 0.6 MG/DL (0.2-1.0)
--- NOTE | 2020-10-28 21:14 | Emergency Room Report ---
History of Present Illness General Chief Complaint: Pain Source: Patient Present Illness HPI Disclaimer: Please note that this report is being documented using DRAGON technology. This can lead to erroneous entry secondary to incorrect interpretation by the dictating instrument. HPI: 25-year-old presents for evaluation of flank pain. Patient states last week he began to experience an aching over the right flank that radiated down towards the lower abdomen. Resolved after a few days on its own. Denies any dysuria, hematuria, abdominal pain. He report intermittent nausea but no vomiting. Denies fever or chills. He had been asymptomatic for 5 days and then today began to feel the aching on the right side again. Again radiates down the right side of the flank. No prior history of kidney stones or renal disease. Denies any trauma. Reports pain exacerbated the flank with deep inspiration and bending and twisting motions. Denies chest pain palpitations or shortness of breath. PMH: Denied PSH: Denied Allergies: Denied Social Hx: Denied Allergies: Coded Allergies: No Known Allergies (Unverified , 04/27/13) COVID-19 Screening Contact w/high risk pt: No Experienced COVID-19 symptoms?: No COVID-19 Testing performed PRODUCTION ENGINEER: No Nursing Documentation-PMH Hx Gastrointestinal Problems: Yes - gastritis Review of Systems All Other Systems: negative except mentioned in HPI Physical Exam Vital Signs Date Time Temp Pulse Resp B/P (MAP) Pulse Ox O2 Delivery O2 Flow Rate FiO2 10/28/20 20:03 98.6 87 18 129/78 (95) 96 Room Air General: Awake and alert, no acute distress HEENT: NC/AT. EOMI. Cardiovascular: RRR. S1 and S2 normal. No murmur appreciated Resp: Normal work of breathing. No cough, wheezing or crackles appreciated Abdomen: Abdomen is soft, nondistended. Nontender. Right-sided CVA tenderness. Negative on left. Skin: Intact. No abrasions, laceration or rash over the exposed skin MSK: Normal tone and bulk. Moving all extremities. No obvious deformity. Neuro: Awake and alert. Mentating appropriately. Medical Decision Making Diagnostic Impression: Primary Impression: Flank pain ER Course 25-year-old male with right-sided flank pain. Concern for nephrolithiasis, CAIO, cholecystitis, cholelithiasis, fatty liver, musculoskeletal strain, rib injury among others. Most consistent with possible kidney stone and CT scan noncontrast was ordered as well as labs. Labs showed normal renal function and are largely within normal limits. No evidence of infection. CT scan shows mild dilation of the right ureter which either is physiologic or could represent a recently passed stone. Patient is feeling well now and was given Toradol. Discussed PMD follow-up and reasons to return to the ED. He understands and agrees with this treatment plan. Laboratory Tests Test 10/28/20 20:30 White Blood Count 7.0 K/UL (4.8-10.8) Red Blood Count 5.22 M/UL (4.70-6.10) Hemoglobin 15.6 G/DL (14.2-18.0) Hematocrit 46.4 % (42.0-52.0) Mean Corpuscular Volume 89 FL (80-99) Mean Corpuscular Hemoglobin 29.9 PG (27.0-31.0) Mean Corpuscular Hemoglobin Concent 33.6 G/DL (32.0-36.0) Red Cell Distribution Width 12.4 % (11.6-14.8) Platelet Count 251 K/UL (150-450) Mean Platelet Volume 7.1 FL (6.5-10.1) Neutrophils (%) (Auto) 48.9 % (45.0-75.0) Lymphocytes (%) (Auto) 42.2 % (20.0-45.0) Monocytes (%) (Auto) 7.1 % (1.0-10.0) Eosinophils (%) (Auto) 1.0 % (0.0-3.0) Basophils (%) (Auto) 0.9 % (0.0-2.0) Urine Color Pale yellow Urine Appearance Clear Urine pH 7 (4.5-8.0) Urine Specific [place] 1.005 (1.005-1.035) Urine Protein Negative (NEGATIVE) Urine Glucose (UA) Negative (NEGATIVE) Urine Ketones Negative (NEGATIVE) Urine Blood Negative (NEGATIVE) Urine Nitrite Negative (NEGATIVE) Urine Bilirubin Negative (NEGATIVE) Urine Urobilinogen Normal MG/DL (0.0-1.0) Urine Leukocyte Esterase Negative (NEGATIVE) Sodium Level 138 MMOL/L (136-145) Potassium Level 3.4 MMOL/L (3.5-5.1) L Chloride Level 103 MMOL/L (98-107) Carbon Dioxide Level 30 MMOL/L (21-32) Anion Gap 5 mmol/L (5-15) Blood Urea Nitrogen 15 mg/dL (7-18) Creatinine 0.9 MG/DL (0.55-1.30) Estimated Glomerular Filtration Rate > 60 mL/min (>60) Glucose Level 92 MG/DL (74-106) Calcium Level 9.2 MG/DL (8.5-10.1) Total Bilirubin 0.6 MG/DL (0.2-1.0) Aspartate Amino Transferase (AST) 20 U/L (15-37) Alanine Aminotransferase (ALT) 29 U/L (12-78) Alkaline Phosphatase 81 U/L (46-116) Total Protein 8.0 G/DL (6.4-8.2) Albumin 4.1 G/DL (3.4-5.0) Globulin 3.9 g/dL Albumin/Globulin Ratio 1.1 (1.0-2.7) Lipase 126 U/L (73-393) Last Vital Signs Date Time Temp Pulse Resp B/P (MAP) Pulse Ox O2 Delivery O2 Flow Rate FiO2 10/28/20 20:03 98.6 87 18 129/78 (95) 96 Room Air Disposition: HOME, SELF-CARE Condition: Stable Scripts Ibuprofen* (MOTRIN*) 600 Mg Tablet 600 MG ORAL Q6H PRN for For Pain, #30 TAB 0 Refills Prov: Obed Jonas MD 10/28/20 Referrals: NOT CHOSEN IPA/,REFERRING (PCP) Obed Jonas MD Oct 28, 2020 21:14
--- NOTE | 2020-10-28 21:26 | Diagnostic Imaging Report ---
EXAM: CT Abdomen and Pelvis Without Intravenous Contrast CLINICAL HISTORY: FLANK TECHNIQUE: Axial computed tomography images of the abdomen and pelvis without intravenous contrast. CTDI is 12.40 mGy and DLP is 780.60 mGy-cm. One or more of the following dose reduction techniques were used: automated exposure control, adjustment of the mA and/or kV according to patient size, use of iterative reconstruction technique. Coronal and sagittal reformatted images were created and reviewed. COMPARISON: 04/27/2013 FINDINGS: Lung bases: Unremarkable. No mass. No consolidation. ABDOMEN: Liver: Unremarkable. Gallbladder and bile ducts: Unremarkable. No calcified stones. No ductal dilation. Pancreas: Unremarkable. No ductal dilation. Spleen: Unremarkable. No splenomegaly. Adrenals: Unremarkable. No mass. Kidneys and ureters: No urolithiasis definitively seen. Minimal right ureterectasis could be incidental, could represent UTI, or could represent recently passed stone. No hydronephrosis. Stomach and bowel: Unremarkable. No obstruction. No mucosal thickening. PELVIS: Appendix: Normal appendix. Bladder: Unremarkable. No stones. Reproductive: Unremarkable as visualized. ABDOMEN and PELVIS: Intraperitoneal space: Unremarkable. No free air. No significant fluid collection. Bones/joints: No acute fracture. No dislocation. Soft tissues: Unremarkable. Vasculature: Unremarkable. No abdominal aortic aneurysm. Lymph nodes: Unremarkable. No enlarged lymph nodes. IMPRESSION: 1. No urolithiasis definitively seen. 2. Minimal right ureterectasis could be incidental, could represent UTI, or could represent recently passed stone. 3. Normal appendix. 4. Otherwise unremarkable.
[2020-10-28 21:45] VITALS: BP 129/78
[2020-10-28] MEDS ORDERED: IBUPROFEN600 M1 ORAL (22:01)
[2020-10-28] MEDS ORDERED: Ketorolac 30mg Inj IV ONE (22:15)
== END 2020-10-28 22:30 | disposition home or self-care (01) ==
LOC: EMR 20:33
DX: R10.9 Unspecified abdominal pain (principal)
CPT/HCPCS: 36415; 74176; 80053; 81003; 83690; 85025; 96374; J1885; Z7502; 99284

== ENCOUNTER 2020-12-16 11:23 | Emergency (ER) | payer MEDICAID ==
[~2020-12-16] VITALS: Ht 180.3 cm; Wt 111.1 kg
--- NOTE | 2020-12-16 12:32 | NUR ---
pt presents with R sided abd pain starting this morning, sharp pain on RUQ. pt denies nausea/vomiting/diarrhea/cough/fever/sob. pt denies pmh, denies allergies. pt states started at work this morning, pain when lifting arms, pain with exercise. pt states 6/10 pain intermittent with stretching/exercise only. pt placed in room on monitor, iv started, blood drawn, urine and blood sent to lab. pt taken to ct. pt medicated per eMAR. pt now back from ct. VSS. denies pain at this time. will continue to monitor.
[2020-12-16 12:37] VITALS: BP 139/87
[2020-12-16 12:38] LABS: APPEARANCE,URINE CLEAR; BASOPHILS % (AUTO) 0.7 % (0.0-2.0); BILIRUBIN, URINE NEGATIVE (NEGATIVE); COLOR,URINE PALE YELLOW; EOSINOPHILS % (AUTO) 0.9 % (0.0-3.0); GLUCOSE, URINE (UA) NEGATIVE (NEGATIVE); HEMATOCRIT 51.1 % (42.0-52.0); HEMOGLOBIN 16.7 G/DL (14.2-18.0); KETONES,URINE NEGATIVE (NEGATIVE); LEUKOCYTE ESTERASE ,URINE NEGATIVE (NEGATIVE); LYMPHOCYTES % (AUTO) 35.8 % (20.0-45.0); MEAN CORPUSCULAR VOLUME 89 FL (80-99); MONOCYTES % (AUTO) 7.1 % (1.0-10.0); NEUTROPHILS % (AUTO) 55.4 % (45.0-75.0); NITRITE,URINE NEGATIVE (NEGATIVE); PH,URINE 7 (4.5-8.0); PLATELET COUNT 281 K/UL (150-450); PROTEIN,URINE NEGATIVE (NEGATIVE); RED BLOOD COUNT 5.75 M/UL (4.70-6.10); RED CELL DISTRIBUTION WIDTH 12.7 % (11.6-14.8); UROBILINOGEN,URINE NORMAL MG/DL (0.0-1.0); WHITE BLOOD COUNT 5.5 K/UL (4.8-10.8)
[2020-12-16 12:56] LABS: ANION GAP 7 mmol/L (5-15); BLOOD UREA NITROGEN 9 mg/dL (7-18); CALCIUM 9.5 MG/DL (8.5-10.1); CARBON DIOXIDE 31 MMOL/L (21-32); CHLORIDE 103 MMOL/L (98-107); CREATININE 0.9 MG/DL (0.55-1.30); SODIUM 141 MMOL/L (136-145)
--- NOTE | 2020-12-16 13:00 | Emergency Room Report ---
History of Present Illness General Chief Complaint: Abdominal Pain Source: Patient Present Illness HPI Patient presents to the emergency department today complaining of cute onset of right lower quadrant abdominal pain radiating into his groin. Patient states that it occurred acutely associate some nausea. No vomiting no fever no chest pain shortness of breath or dysuria or frequency. No prior episodes. Denies any testicular pain. Symptoms noted to be moderate. No other modifying factors. No other associated signs and symptoms. No other complaints were noted. Allergies: Coded Allergies: No Known Allergies (Unverified , 04/27/13) COVID-19 Screening Contact w/high risk pt: No Recent Travel to affected area: No Experienced COVID-19 symptoms?: No COVID-[address]: Yes COVID-19 Screening: Negative COVID-19 COVID-19 Testing Source: at the hospital Patient History Past Medical History: none Past Surgical History: none Pertinent Family History: none Social History: Denies: smoking, alcohol use, drug use Reviewed Nursing Documentation: PMH: Agreed; PSxH: Agreed Nursing Documentation-PMH Past Medical History: No Stated History Hx Gastrointestinal Problems: Yes - gastritis Review of Systems All Other Systems: negative except mentioned in HPI Physical Exam Vital Signs Date Time Temp Pulse Resp B/P (MAP) Pulse Ox O2 Delivery O2 Flow Rate FiO2 12/16/20 11:29 98.1 71 12 138/91 (107) 100 Room Air Sp02 EP Interpretation: reviewed, normal General Appearance: normal inspection, well appearing, no apparent distress, alert Head: atraumatic Eyes: bilateral eye normal inspection ENT: normal ENT inspection, hearing grossly normal, normal voice Neck: normal inspection, full range of motion, supple, no bony tend Respiratory: normal inspection, lungs clear, normal breath sounds, no respiratory distress, no retraction, no wheezing Cardiovascular #1: regular rate, rhythm, no edema Gastrointestinal: normal inspection, normal bowel sounds, soft, no guarding, no hernia, tenderness - Right lower quadrant mild Genitourinary: no CVA tenderness Musculoskeletal: normal inspection, back normal, normal range of motion Neurologic: alert, responsive, speech normal, normal inspection Psychiatric: normal inspection, judgement/insight normal, mood/affect normal Skin: no rash Medical Decision Making Diagnostic Impression: Primary Impression: Abdominal pain ER Course Patient presents to the emergency department today complaining of abdominal pain. Differential considerations include acute pancreatitis, cholecystitis, gastritis, hepatitis, appendicitis just to name a few. Given the severity of the patient's presentation I felt this is a highly complex patient. This patient required extensive workup. Patient laboratory work-up was negative. CT was noted to be negative. Given negative work-up I feel the patient symptoms were could be secondary to nonspecific abdominal pain or the abdominal wall strain. Recommend Motrin as needed close outpatient follow-up. Patient is advised to follow up with primary doctor in 2-3 days and return the emergency room for any worsening symptoms and as needed. Labs Test 12/16/20 12:23 White Blood Count 5.5 K/UL (4.8-10.8) Red Blood Count 5.75 M/UL (4.70-6.10) Hemoglobin 16.7 G/DL (14.2-18.0) Hematocrit 51.1 % (42.0-52.0) Mean Corpuscular Volume 89 FL (80-99) Mean Corpuscular Hemoglobin 29.1 PG (27.0-31.0) Mean Corpuscular Hemoglobin Concent 32.7 G/DL (32.0-36.0) Red Cell Distribution Width 12.7 % (11.6-14.8) Platelet Count 281 K/UL (150-450) Mean Platelet Volume 7.4 FL (6.5-10.1) Neutrophils (%) (Auto) 55.4 % (45.0-75.0) Lymphocytes (%) (Auto) 35.8 % (20.0-45.0) Monocytes (%) (Auto) 7.1 % (1.0-10.0) Eosinophils (%) (Auto) 0.9 % (0.0-3.0) Basophils (%) (Auto) 0.7 % (0.0-2.0) Urine Color Pale yellow Urine Appearance Clear Urine pH 7 (4.5-8.0) Urine Specific Strawn 1.005 (1.005-1.035) Urine Protein Negative (NEGATIVE) Urine Glucose (UA) Negative (NEGATIVE) Urine Ketones Negative (NEGATIVE) Urine Blood Negative (NEGATIVE) Urine Nitrite Negative (NEGATIVE) Urine Bilirubin Negative (NEGATIVE) Urine Urobilinogen Normal MG/DL (0.0-1.0) Urine Leukocyte Esterase Negative (NEGATIVE) Sodium Level 141 MMOL/L (136-145) Potassium Level 4.0 MMOL/L (3.5-5.1) Chloride Level 103 MMOL/L (98-107) Carbon Dioxide Level 31 MMOL/L (21-32) Anion Gap 7 mmol/L (5-15) Blood Urea Nitrogen 9 mg/dL (7-18) Creatinine 0.9 MG/DL (0.55-1.30) Estimat Glomerular Filtration Rate > 60 mL/min (>60) Glucose Level 98 MG/DL (74-106) Calcium Level 9.5 MG/DL (8.5-10.1) Total Bilirubin 0.4 MG/DL (0.2-1.0) Aspartate Amino Transf (AST/SGOT) 19 U/L (15-37) Alanine Aminotransferase (ALT/SGPT) 33 U/L (12-78) Alkaline Phosphatase 93 U/L (46-116) Total Protein 8.8 G/DL (6.4-8.2) Albumin 4.6 G/DL (3.4-5.0) Globulin 4.2 g/dL Albumin/Globulin Ratio 1.1 (1.0-2.7) Lipase 121 U/L (73-393) CT/MRI/US Diagnostic Results CT/MRI/US Diagnostic Results : Imaging Test Ordered: CT abdomen pelvis: Negative Last Vital Signs Date Time Temp Pulse Resp B/P (MAP) Pulse Ox O2 Delivery O2 Flow Rate FiO2 12/16/20 12:37 63 18 139/87 100 Room Air 12/16/20 11:29 98.1 Status: improved Disposition: HOME, SELF-CARE Condition: Stable Scripts Ibuprofen* (MOTRIN*) 600 Mg Tablet 600 MG ORAL Q6H PRN for FOR PAIN, #20 TAB 0 Refills Prov: Wang Reid MD 12/16/20 Referrals: NOT CHOSEN [facility]/,REFERRING (PCP) Wang Reid MD Dec 16, 2020 13:00
[2020-12-16 13:01] LABS: ALANINE AMINOTRANSFERASE 33 U/L (12-78); ALBUMIN 4.6 G/DL (3.4-5.0); ALBUMIN/GLOBULIN RATIO 1.1 (1.0-2.7); ALKALINE PHOSPHATASE 93 U/L (46-116); ASPARTATE AMINO TRANSFERASE 19 U/L (15-37); BILIRUBIN,TOTAL 0.4 MG/DL (0.2-1.0)
--- NOTE | 2020-12-16 13:05 | Diagnostic Imaging Report ---
CT ABDOMEN + PELVIS Without Contrast HISTORY: Pain TECHNIQUE: One or more of the following dose reduction techniques were used: automated exposure control, adjustment of the mA and/or kV according to patient size, use of iterative reconstruction technique. One or more of the following dose reduction techniques were used: automated exposure control, adjustment of the mA and/or kV according to patient size, use of iterative reconstruction technique. Total Exam volume computed tomography dose index (CTDIvol) = 11.4 mGy and Dose Length Product (DLP) = 659.1 mGY-c INDICATION: Pain TECHNIQUE: Multiple, contiguous axial cuts of the abdomen and pelvis are obtained from the lung bases to the ischial tuberosities. Sagittal and coronal reformatted images are available. COMPARISON: CT abdomen and pelvis October 28, 2020 FINDINGS: The lung bases are clear. The liver and spleen are normal in size and free of mass lesions. The gallbladder, bile ducts and pancreas are normal. The adrenal gland are unremarkable. The kidneys are normal in size and contour. No stones, lesions or hydronephrosis. The appendix is unremarkable, as is the rest of the GI tract. Aorta is normal caliber. No adenopathy or extraluminal air. The osseous structures are normal. Underdistended urinary bladder. IMPRESSION: No hydronephrosis or nephrolithiasis. Underdistended urinary bladder. No ureteral stones appreciated. No evidence of appendicitis or diverticulitis. No acute abnormality appreciated
[2020-12-16] MEDS ORDERED: IBUPROFEN600 M1 ORAL (13:11)
[2020-12-16 13:18] VITALS: BP 128/80
--- NOTE | 2020-12-16 13:18 | NUR ---
pt VSS. pt cleared for dc. spoke with pt.
== END 2020-12-16 13:20 | disposition home or self-care (01) ==
LOC: EMR 11:43
DX: R10.31 Right lower quadrant pain (principal)
CPT/HCPCS: 36415; 74176; 80053; 81003; 83690; 85025; 96360; Z7502; 99284